=== PATIENT | female | born 1960 | race Two or more races ===

== ENCOUNTER 2016-04-28 13:01 | Emergency (ER) | payer SELFPAY ==
[~2016-04-28] VITALS: Ht 167.6 cm; Wt 68.0 kg
[2016-04-28 13:11] VITALS: BP 131/69
[2016-04-28] MEDS ORDERED: HYDROCODONE/APAP 5/325MG 1 EACH TABLET ONE (13:11)
[2016-04-28] MEDS ORDERED: HYDROCODONE/APAP 5/325MG 1 EACH TABLET PO ONE ×2 (13:30→14:00)
[2016-04-28] MEDS ORDERED: MORPHINE SULFATE INJ 2 MG/ML DISP.SYRIN ONE (13:49)
[2016-04-28] MEDS ORDERED: ONDANSETRON 4 MG TAB.RAPDIS ONE (13:49)
[2016-04-28] MEDS ORDERED: MORPHINE SULFATE INJ 4 MG/ML DISP.SYRIN ONE (13:49)
[2016-04-28] MEDS ORDERED: MORPHINE SULFATE INJ 4 MG/ML DISP.SYRIN IM ONE (14:00)
[2016-04-28] MEDS ORDERED: ONDANSETRON 4 MG TAB.RAPDIS SL ONE (14:00)
== END 2016-04-28 14:02 | disposition home or self-care (01) ==
LOC: ER 13:05
DX: S20.212A Contusion of left front wall of thorax, initial encounter (principal); W10.8XXA Fall (on) (from) other stairs and steps, initial encounter; Y93.89 Activity, other specified; Y92.89 Other specified places as the place of occurrence of the external cause; Y99.8 Other external cause status
CPT/HCPCS: 71100; 96372; 99283; A4606; J2270 ×2; Q0162; Z7610